=== PATIENT | male | born 1945 | race Caucasian/White ===

== ENCOUNTER 2024-04-08 10:08 | Emergency (ER) | payer OTHER, SELFPAY ==
[2024-04-08 10:17] VITALS: BP 166/91
[2024-04-08] MEDS: ADACEL 0.5 ML IM (11:26)
--- NOTE | 2024-04-08 11:38 | ED.GENMED ---
History of Present Illness
General
Chief Complaint: Skin Problem
Source: patient
Exam Limitations: none
Time Seen by Provider: 04/08/24 10:56
Nursing documentation reviewed up to this point in time: agreed with
History of Present Illness
History of Present Illness:
78-year-old male with a past medical history of diabetes who presents to the emergency department for evaluation after head trauma. Patient was getting something out of the back of a car and hit his head on the [place]. No loss of consciousness.
Sustained a laceration to the scalp. Referred by his primary for evaluation. Denies any headache or neck pain. Denies any other injuries. He is not on any blood thinners.
Past History
Past History
ED Past Medical History: NIDDM
Social History
Tobacco: Non-smoker
Personal:
Living: with family
Employment: Retired
Review of Systems
Review of Systems
All Other Systems: ROS reviewed and negative except as documented in HPI and ROS
ABD/GI: Denies nausea or vomiting
Musculoskeletal: Denies neck pain or back pain
Neurological: Denies dizzy or headache
Phy Exam
Physical Exam
Physical Exam:
General: Awake, alert, oriented x3; no acute distress
Head: Normocephalic, approximately 3.5 cm linear laceration right parietal scalp
Eyes: Conjunctiva normal, EOMI, pupils equal round and reactive to light bilaterally
Throat: Airway intact, handling secretions, tongue atraumatic
Neck: Trachea midline, no cervical spine tenderness
Lungs: Breathing comfortably with no distress, no cyanosis or accessory muscle use
Heart: Regular rate
Neuro: Cranial nerves grossly intact, speech fluid, motor and sensory function grossly intact in all extremities
Extremities: Atraumatic, no deformities
Scores
Heart Failure Risk
Heart Failure Risk Score: Not Applicable
Heart Score for Chest Pain Patients
STEMI patient?: Not applicable
Withdrawal Assessment of Alcohol
Withdrawal Assessment Completed?: Not applicable
Course
Orders/Labs/Results
Orders:
Orders
04/08/24 10:56
CT Cervical Spine W/o Iv Contr Urgent
Comment:
Reason For Exam: fall with headstrike
CT Head W/o Iv Contrast Urgent
Comment:
Reason For Exam: fall with headstrike
04/08/24 10:57
Tetanus/Diphth/Acelpertussis [Adacel] 0.5 ml IM .ONCE ONE
04/08/24 11:35
Lidocaine/Epinephrine/Tetracai [Let Topical Anesthetic Gel] 3 ml .ROUTE .ST-MED ONE
Vital Signs
Initial and Last Documented VS:
Initial Vital Signs
Temp Pulse Resp BP Pulse Ox
36.9 C 87 18 166/91 97
04/08/24 10:17 04/08/24 10:17 04/08/24 10:17 04/08/24 10:17 04/08/24 10:17
Last Documented Vital Signs
Temp Pulse Resp BP Pulse Ox
36.9 C 87 18 166/91 97
04/08/24 10:17 04/08/24 10:17 04/08/24 10:17 04/08/24 10:17 04/08/24 10:17
Procedures
Laceration Closure
Scalp:
Status of Wound: clean
Size of Wound in cm: 3.5
Description of Wound Edges: sharp
Preparation: cleaned with saline
Anesthesia: Topical-LET
Revision/Debridement: routine- no revision
Type of Closure: single layer closure
Skin Closure Material: skin brittney
Number of sutures: 5
MDM/Problems Addressed
Differential Diagnosis Includes:
Scalp laceration
MDM/Problems Addressed:
78-year-old male presents after head trauma with scalp laceration. Not on blood thinners. No other injuries. Hypertensive otherwise normal vitals. Had CT head and cervical spine reviewed by me no acute pathology�radiology report pending.
Tetanus updated. Will repair laceration. Plan for discharge pending official read on CT.
*Radiology
Radiology exam reviewed: preliminary read by ED provider and radiology read reviewed
*Pulse Oximetry
Patient hypoxic: no
*Critical Care Note
Total Time (30-74mins, 75-104mins- exclusive of procedures): Not Applicable
Data Reviewed
Source: patient
ED Attending Note
-
Portions of this chart may have been created with voice recognition software.� Occasional wrong word or��sound alike� substitutions may have occurred due to the inherent limitations of voice recognition software.
Discharge Plan
Departure
Patient Disposition: Home (Routine Discharge)
Date of Disposition: 04/08/24
Time of Disposition: 11:55
Patient with high blood pressure during this ER visit?: Yes
Discharge Problem:
Laceration of scalp
Instructions: Laceration Repair With Brittney ED
Prescriptions:
No Action
METFORMIN HCl
1 tab PO HS
Patient Comments:
does not know dose
Sertraline
1 tab PO DAILY
Patient Comments:
does not know dose
Referrals:
Kendrick Patel DO [Family Provider] -
Activity Restrictions/Additional Instructions:
You were seen in the emergency room after head trauma�you are found to have a laceration on your head. It was repaired with brittney. Your brittney should be removed in a week. You can return here to the ER for removal or you can follow-up through
urgent care or your primary care. If you notice signs of infection return immediately. Your blood pressure was noted to be high today in the ER�you should watch your blood pressure over the next few days and discuss with your primary doctor if it
remains high.
Thank you for visiting the Emergency Department at [facility].
1. Please schedule a follow up appointment as directed. Call first thing tomorrow morning to make an appointment.
2. If indicated, please take your medications as instructed and indicated on discharge paperwork.
3. If any of your symptoms do not improve, or persist, or become more severe within 6-12 hours, please return to the emergency department for further care.
4. Please return to the emergency department if you develop a headache, neck pain/stiffness, fever greater than 100.4F, chest pain, shortness of breath, persistent nausea, vomiting, slurred speech, difficulty walking, numbness/tingling, weakness,
signs of infection or any other symptoms that are worrisome to you.
Please call [phone] if you have any questions.
Interventions
Interventions:
*Risk Screen - Suicide Last Done: 04/08/24 10:17
*General Assessment Last Done: 04/08/24 10:17
*Neglect/Abuse Screening Last Done: 04/08/24 10:17
Discharge Date and Time
Print Language: AMHARIC
== END 2024-04-08 12:11 | disposition home or self-care (01) ==
LOC: EMR 10:08
PROVIDERS: EMERGENCY PHYSICIAN Emergency Medicine; FAMILY PHYSICIAN Family Medicine
DX: S01.01XA Laceration without foreign body of scalp, initial encounter (principal); W22.09XA Striking against other stationary object, initial encounter; R03.0 Elevated blood-pressure reading, without diagnosis of hypertension; Z23 Encounter for immunization; E11.9 Type 2 diabetes mellitus without complications
CPT/HCPCS: 99284; 12002; 90471; 70450; 72125; 90715

== ENCOUNTER 2024-07-18 16:30 | Emergency (ER) | payer OTHER, SELFPAY ==
[2024-07-18 16:39] VITALS: BP 166/99
[2024-07-18 16:55] LABS: % Basophils 0.9 % (0-2); % Eosinophils 1.6 % (0-6); % Immature Granulocytes 0.2 % (0-0.5); % Lymphocytes 34.7 % (20.5-51.1); % Monocytes 11.7 % (1.7-9.3); % Neutrophils 50.9 % (42.2-75.2); Absolute Basophils 0.1 10^3/uL (0-0.2); Absolute Eosinophils 0.1 10^3/uL (0-0.7); Absolute Monocytes 0.7 10^3/uL (0.1-0.6); Absolute Neutrophils 2.9 10^3/uL (1.4-6.5); Hematocrit 41.1 % (39.0-52.0); Hemoglobin 14.1 g/dL (13.0-18.0); Mean Corp Hgb Conc. 34.3 g/dL (33.0-37.0); Mean Corpuscular Hgb 33.2 pg (27.0-31.0); Mean Corpuscular Volume 96.7 fL (80.0-94.0); Mean Platelet Volume 9.3 fL (7.4-10.4); Nucleated Red Blood Cells % 0 % (-); Platelet Count 168 10^3/uL (130-400); Red Blood Cell Count 4.25 10^6/uL (4.70-6.10); Red Cell Dist. Width 12.3 % (11.5-14.5); White Blood Cell Count 5.7 10^3/uL (4.8-10.8)
[2024-07-18 17:13] LABS: ALT (SGPT) 25 U/L (0-50); AST (SGOT) 24 U/L (17-59); Albumin 4.9 g/dl (3.5-5.0); Alkaline Phosphatase 73 U/L (38-126); Blood Urea Nitrogen 18 mg/dl (9-20); Calcium 9.2 mg/dl (8.4-10.2); Carbon Dioxide 24 mmol/L (22-30); Chloride 102 mmol/L (98-107); Glucose 105 mg/dl (70-99); Potassium 4.6 mmol/L (3.5-5.1); Sodium 136 mmol/L (135-145); Total Bilirubin 0.6 mg/dl (0.2-1.3); Total Protein 7.1 g/dl (6.3-8.2); eGFR > 60.00
[2024-07-18 17:18] LABS: Troponin I < 0.012 ng/ml
[2024-07-18 18:35] VITALS: BP 167/79
[2024-07-18 18:36] VITALS: BMI 25.1
--- NOTE | 2024-07-18 18:59 | ED.GENMED ---
History of Present Illness
General
Chief Complaint: Chest Pain
Source: patient
Exam Limitations: none
Time Seen by Provider: 07/18/24 18:58
Nursing documentation reviewed up to this point in time: agreed with
History of Present Illness
History of Present Illness:
The patient is a very pleasant 79-year-old man who reports 2 to 3 days of increased shortness of breath and chest tightness. Patient reports it seems to be worse with exertion and is better with rest. Patient reports that the shortness of breath
has been fairly consistent, and describes it as increased awareness of him breathing. He denies cough and fever. He denies nasal congestion. He denies any sharp chest pain. He denies chest pain when deep when taking a deep breath, he denies a
history of DVT and PE. He denies recent long car ride or plane ride. Patient reports his chest pain is nearly gone at this time. He reports that the last from minutes to hours. He describes it as mild and left-sided. He denies leg pain and leg
swelling. Patient reports that he has had a history of syncope in the past and had to see cardiology for that. He reports that he has no known cardiac disease.
Past History
Past History
ED Past Medical History: NIDDM and Psychiatric (Anxiety, depression)
ED Past Surgical History: Appendectomy, Orthopedic and Tonsilectomy
Social History
Tobacco: Smoker (Smokes a cigar every 2 weeks)
Alcohol: Other
Drug: None
Personal:
Living: with family
Employment: Retired
Family History
Family History: Other
Review of Systems
Review of Systems
Allergies reviewed?: Yes
All Other Systems: ROS reviewed and negative except as documented in HPI and ROS
Constitutional: Reports no symptoms
EENT: Reports no symptoms
Respiratory: Reports trouble breathing
Cardiac: Reports chest pain
ABD/GI: Reports no symptoms
: Reports no symptoms
Musculoskeletal: Reports no symptoms
Skin: Reports no symptoms
Neurological: Reports no symptoms
Endocrine: Reports no symptoms
Hematologic/Lymphatic: Reports no symptoms
Psychiatric: Reports no symptoms
Phy Exam
Physical Exam
Physical Exam:
Physical Exam
General: no apparent distress, not acutely ill. Well appearing, comfortable, smiling and conversational
Neck: supple. no meningeal signs. normal psoterior pharynx
Heart: s1/s2 regular rate and rhythm, no murmur. equal radial pulses.
Lungs: no acute respiratory distress. clear bilaterally
Abdomen: normal bowel sounds. not tender. no CVAT
Neuro: alert and oriented. no focal neurological deficits
Skin: no rash
Psychiatric: well kept. interactive and cooperative
Extremities: no edema. no calf tenderness. negative homans. good distal pulses
Scores
Heart Score for Chest Pain Patients
STEMI patient?: No
History: Slightly or Non-Suspicious
ECG: Normal
Age: >/= 65 years
Risk Factors: 1 or 2 Risk Factors
Troponin: </= Normal Limit
Heart Score for Chest Pain Patients: 3
Heart Score Risk: 2.5% MACE over next 6 weeks
Course
Orders/Labs/Results
Orders:
Orders
07/18/24 16:31
EKG [Electrocardiogram (*1)] Urgent
Reason for Study: Chest Pain
07/18/24 16:32
EKG- Treatment ONCE
07/18/24 16:48
Complete Blood Count/With Diff Urgent
Comprehensive Metabolic Panel Urgent
Troponin I Urgent
07/18/24 19:[address] Non Medication Order As Directed
Physician Order: walking pulse ox
CR Chest - 2 Views Urgent
Comment:
Reason For Exam: SOB
07/18/24 19:31
Troponin I Urgent
Abnormal Lab Results
07/18/24
16:48
RBC 4.25 L 10^6/uL
(4.70-6.10)
MCV 96.7 H fL
(80.0-94.0)
MCH 33.2 H pg
(27.0-31.0)
Absolute Monos (auto) 0.7 H 10^3/uL
(0.1-0.6)
Monocytes % 11.7 H %
(1.7-9.3)
Glucose 105 H mg/dl
(70-99)
07/18/24 16:48
07/18/24 16:48
Vital Signs
Initial and Last Documented VS:
Initial Vital Signs
Temp Pulse Resp BP Pulse Ox
97.5 F 60 16 166/99 97
07/18/24 16:39 07/18/24 16:39 07/18/24 16:39 07/18/24 16:39 07/18/24 16:39
Last Documented Vital Signs
Temp Pulse Resp BP Pulse Ox
97.5 F 62 16 164/84 99
07/18/24 16:39 07/18/24 19:15 07/18/24 19:15 07/18/24 19:00 07/18/24 19:15
MDM/Problems Addressed
Differential Diagnosis Includes:
Acute CHF, pulmonary embolism, coronary artery disease, anxiety
MDM/Problems Addressed:
Patient presents with acute chest pain and shortness of breath
Chronic conditions affecting care: DM
Acute Exacerbation and/or Progression of Chronic Illness:
Patient is not acutely hyperglycemic or hypoglycemic. Diabetes seems to be well-controlled
*Radiology
Radiology exam reviewed: preliminary read by ED provider (No acute disease) and radiology read reviewed
*Pulse Oximetry
Patient hypoxic: no
*EKG
Interpreted by ED Provider?: Yes
Interpretation: normal
Comparison EKG: no changes
Rate: normal
Rhythm: sinus
[place]: normal axis
Interval: normal interval
QRS Pattern: normal QRS
Ischemia: no ischemia
*Jewelry Making Instructor Interpretation
Rate: normal
Interpretation: normal
Rhythm: sinus
*Critical Care Note
Total Time (30-74mins, 75-104mins- exclusive of procedures): Not Applicable
Data Reviewed
Review of Other/Old Records Reveals: Testing (Normal cardiac echo 2014)
Update Note
Update Note:
Patient remains very well appearing and comfortable. Both troponins are normal and EKG appears nonischemic therefore it is doubtful he is acute coronary syndrome. Chest x-ray is clear. Patient encouraged to follow-up with cardiology this week.
ED Attending Note
-
Portions of this chart may have been created with voice recognition software.� Occasional wrong word or��sound alike� substitutions may have occurred due to the inherent limitations of voice recognition software.
Discharge Plan
Departure
Patient Disposition: Home (Routine Discharge)
Date of Disposition: 07/18/24
Time of Disposition: 20:41
Patient with high blood pressure during this ER visit?: Yes
Condition: Good
Covid-19: Not Applicable
Discharge Problem:
Chest pain in adult
Instructions: Chest Pain CBC Follow Up, BLOOD PRESSURE
Prescriptions:
No Action
METFORMIN HCl
1 tab PO HS
Patient Comments:
does not know dose
Sertraline
1 tab PO DAILY
Patient Comments:
does not know dose
Referrals:
Kendrick Patel DO [Family Provider] -
Venkat Rosado MD [Active] - (Call if you do not hear within 48 hours)
Activity Restrictions/Additional Instructions:
If you do not hear from the cardiology office within 48 hours, please give them a call
Interventions
Interventions:
*Risk Screen - Suicide Last Done: 07/18/24 16:41
*General Assessment Last Done: 07/18/24 18:36
*Neglect/Abuse Screening Last Done: 07/18/24 16:41
*ED- Fall Risk Assessment Last Done: 07/18/24 18:36
*ED COVID-19 Vaccine History Last Done: 07/18/24 18:36
ED- Cardiac Assessment Last Done: 07/18/24 18:36
Discharge Date and Time
Print Language: AMHARIC
[2024-07-18 19:00] VITALS: BP 164/84
[2024-07-18 20:03] LABS: Troponin I < 0.012 ng/ml
[2024-07-18 21:12] VITALS: BP 156/81
== END 2024-07-18 21:12 | disposition home or self-care (01) ==
LOC: EMR 16:30
PROVIDERS: Emergency Medicine; EMERGENCY PHYSICIAN Emergency Medicine; FAMILY PHYSICIAN Family Medicine
DX: R07.89 Other chest pain (principal); E11.9 Type 2 diabetes mellitus without complications; F17.290 Nicotine dependence, other tobacco product, uncomplicated; Z90.49 Acquired absence of other specified parts of digestive tract
CPT/HCPCS: 99285; 71046; 80053; 84484; 85025; 93005

== ENCOUNTER → 2024-07-26 07:23 | Outpatient (REF) | payer OTHER, SELFPAY | LOC: HWRCS 07:23 | PROVIDERS: ATTENDING PHYSICIAN Internal Medicine Cardiovascular Disease; FAMILY PHYSICIAN Family Medicine | DX: R06.09 Other forms of dyspnea (principal); R00.2 Palpitations; R07.89 Other chest pain | CPT/HCPCS: 78452; 93017; A9500; J2785 ==

== ENCOUNTER → 2024-07-29 10:46 | Outpatient (REF) | payer OTHER, SELFPAY | LOC: HWRCS 10:46 | PROVIDERS: ATTENDING PHYSICIAN Internal Medicine Cardiovascular Disease; FAMILY PHYSICIAN Family Medicine | DX: R06.09 Other forms of dyspnea (principal); R00.2 Palpitations; R07.89 Other chest pain | CPT/HCPCS: 93306 ==